=== PATIENT | male | born 1935 | race Caucasian/White ===

== ENCOUNTER → 2023-01-12 | Outpatient (REF) | payer MEDICARE, MEDICAID, SELFPAY ==
[2023-01-12 07:43] LABS: Hematocrit 43.3 % (40-54); Hemoglobin 13.6 g/dL (13.0-16.5); Mean Corp Hgb Conc 31.4 g/dL (32-36); Mean Corpuscular Hgb 31.3 pg (27.0-32.0); Mean Corpuscular Volume 99.8 fL (80-94); Mean Platelet Vol. 11.1 fl (6.2-12.0); Platelet Count 240 K/mm3 (150-450); RBC Distribution Width CV 13.2 % (11.6-14.6); Red Blood Count 4.34 M/mm3 (4.6-6.2); White Blood Count 9.1 K/mm3 (4.4-11.0)
[2023-01-12 07:56] LABS: Anion Gap 7 (5-15); BUN 27 mg/dL (7-18); BUN/Creat Ratio 14.9 RATIO (10-20); Calcium,Total 8.9 mg/dL (8.5-10.1); Chloride 110 mmol/L (98-107); Creatinine, Serum 1.81 mg/dL (0.70-1.30); EST Glomerular Filtration Rate 38 mL/min (>60); Est Glom Filt Rate - Afr Amer 46 mL/min (>60); Glucose 128 mg/dL (74-106); Potassium 4.1 mmol/L (3.5-5.1); Sodium Level 143 mmol/L (136-145)
== END ==
LOC: OLS.WCC 05:00
PROVIDERS: PCP Family Medicine; Visit Provider Family Medicine
DX: I11.0 Hypertensive heart disease with heart failure (principal); I50.9 Heart failure, unspecified; E11.9 Type 2 diabetes mellitus without complications
CPT/HCPCS: 36415; 80048; 85027

== ENCOUNTER → 2023-05-12 | Outpatient (REF) | payer MEDICARE, MEDICAID, SELFPAY ==
[2023-05-12 08:52] LABS: Hematocrit 40.4 % (40-54); Hemoglobin 12.8 g/dL (13.0-16.5); Mean Corp Hgb Conc 31.7 g/dL (32-36); Mean Corpuscular Hgb 31.2 pg (27.0-32.0); Mean Corpuscular Volume 98.5 fL (80-94); Mean Platelet Vol. 11.9 fl (6.2-12.0); Platelet Count 235 K/mm3 (150-450); RBC Distribution Width CV 13.2 % (11.6-14.6); White Blood Count 8.5 K/mm3 (4.4-11.0)
[2023-05-12 09:19] LABS: Anion Gap 4 (5-15); BUN 25 mg/dL (7-18); BUN/Creat Ratio 16.7 RATIO (10-20); Calcium,Total 9.2 mg/dL (8.5-10.1); Chloride 111 mmol/L (98-107); EST Glomerular Filtration Rate 47 mL/min (>60); Est Glom Filt Rate - Afr Amer 57 mL/min (>60); Glucose 119 mg/dL (74-106); Magnesium 2.1 mg/dL (1.6-2.6); Sodium Level 143 mmol/L (136-145)
--- OUTSIDE RECORDS SUMMARY | 2023-05-13 19:00 | XMS RPT_ITS | CCD ---
Author Name Unknown Address [address] [place] [address] Organization [facility] Care Team Providers Care Extension Work Director Name Role Phone BARB SAWYER Unavailable Unavailable PROVIDER, UNKNOWN Unavailable Unavailable PROVIDER, UNKNOWN Unavailable Unavailable PROVIDER, UNKNOWN Unavailable Unavailable PROVIDER, UNKNOWN Unavailable Unavailable PROVIDER, UNKNOWN Unavailable Unavailable PROVIDER, UNKNOWN Unavailable Unavailable Enoc Mcguire Unavailable Jean Marie Bhatia Unavailable [phone] Elias CRUZ, Yrn Wilson Primary Care Provider Enoc Mcguire Unavailable Jean Marie Bhatia Unavailable Yrn Griffin MD Primary Care Provider [phone] Enoc Mcguire Unavailable Jean Marie Bhatia Unavailable Yrn Griffin MD Primary Care Provider Enoc Mcguire Unavailable Jean Marie Bhatia Unavailable Yrn Griffin MD Primary Care Provider [phone] ERON DIAS JR Attending Unavailable YRN GRIFFIN Primary Care Unavailable Allergies Allergy Classification Reported Allergen(s) Allergy Type Date of Onset Reaction(s) Facility (11 sources) cetirizine; Translations: [CETIRIZINE HCL] Drug Allergy 1 Other: See Comments [facility] Other [place] [facility] Medications Completed/Discontinued Medications Medication Drug Class(es) Dates Sig (Normalized) Sig (Original) acetaminophen 325 mg oral tablet (9 sources) Start: 01-30-2020 take 2 tablets by mouth every six hours as needed acetaminophen (TYLENOL) 325 mg tablet Take 2 tablets by mouth every 6 hours as needed. 0 01/30/2020 Active Problems Active Problems Problem Classification Problem Date Documented Da te Episodic/Chronic Aortic; peripheral; and visceral artery aneurysms (9 sources) Aneurysm of ascending aorta; Translations: [Thoracic aortic aneurysm, without rupture] Onset: 04-01-2015 10-02-2017 Chronic Cataract (9 sources) Bilateral pseudophakia; Translations: [Presence of intraocular lens] Onset: 12-25-2015 12-25-2015 Chronic Chronic kidney disease (9 sources) Chronic kidney disease stage 3; Translations: [Stage 3 chronic kidney disease] Onset: 02-03-2020 02-03-2020 Chronic Diabetes mellitus with complications (20 sources) 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; Translations: [Type 2 diabetes mellitus with diabetic autonomic (poly)neuropathy] Onset: 08-30-2014 11-16-2019 Chronic Diabetes mellitus without complication (11 sources) Type 2 diabetes mellitus without complications; Translations: [Type 2 diabetes mellitus] Onset: 03-28-1997 05-13-2021 Chronic Disorders of lipid metabolism (11 sources) Hyperlipidemia, unspecified; Translations: [Mixed hyperlipidemia] Onset: 11-13-2010 11-16-2019 Chronic Essential hypertension (9 sources) Hypertensive disorder; Translations: [Essential (primary) hypertension] Onset: 03-30-2015 11-15-2019 Chronic Mood disorders (10 sources) Depressive disorder; Translations: [Depression] Onset: 11-13-2010 11-16-2019 Chronic Mood disorders (2 sources) Major depressive disorder, single episode, unspecified; Translations: [Major depressive disorder, single episode, unspecified] Onset: 11-25-2017 Other aftercare (2 sources) jail (current) use of antithrombotics/ant iplatelets; Translations: [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 (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) use of antithrombotics/ant iplatelets] Onset: 11-25-2017 Episodic Other circulatory disease (2 sources) Personal history of transient ischemic attack (TIA), 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 deficits; Translations: [Prsnl hx of TIA (TIA), and cereb infrc w/o resid deficits] Onset: 11-25-2017 Episodic Other connective tissue disease (2 sources) Presence of left artificial knee joint; Translations: [Presence of left artificial knee joint] Onset: 11-25-2017 Chronic Other connective tissue disease (6 sources) Other specified soft tissue disorders; Translations: [Arthrodesis status] Onset: 11-25-2017 Episodic Other connective tissue disease (1 source) Recurrent falls ; Translations: [Repeated falls] Episodic Other lower respiratory disease (1 source) Dyspnea; Translations: [Shortness of breath] Episodic Other nervous system disorders (1 source) Disorder of autonomic nervous system; Translations: [Disorder of the autonomic nervous system, unspecified] Chronic Other nutritional; endocrine; and metabolic disorders (9 sources) Obese class II; Translations: [Obesity, unspecified] Onset: 03-30-2018 03-30-2018 Chronic Other nutritional; endocrine; and metabolic disorders (9 sources) Obese class I; Translations: [Obesity, unspecified] Onset: 11-16-2019 11-16-2019 Chronic Residual codes; unclassified (9 sources) Obstructive sleep apnea syndrome; Translations: [Obstructive sleep apnea (adult) (pediatric)] Onset: 03-08-2013 11-16-2019 Chronic Residual codes; unclassified (1 source) Transient alteration of awareness; Translations: [Transient alteration of awareness] Episodic Screening or history of mental health and substance abuse (2 sources) Personal history of nicotine dependence; Translations: [Personal history of nicotine dependence] Onset: 11-25-2017 Episodic Transient cerebral ischemia (9 sources) Amaurosis fugax; Translations: [Amaurosis fugax] Onset: 08-07-2015 08-07-2015 Chronic Unclassified (2 sources) Obstructive sleep apnea (adult) (pediatric); Translations: [Dependence on other enabling machines and devices] Onset: 02-05-2017 Chronic Unclassified (2 sources) Sleep apnea, unspecified; Translations: [Sleep apnea, unspecified] Onset: 11-25-2017 Unclassified (2 sources) 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 (current) use of oral hypoglycemic drugs; Translations: [jail (current) use of oral hypoglycemic drugs] Onset: 11-25-2017 Past or Other Problems Problem Classification Problem Date Documented Date Episodic/Chronic Other circulatory disease (9 sources) Orthostatic hypotension; Translations: [Orthostatic hypotension] Onset: 03-28-2015 05-13-2021 Episodic Other circulatory disease (9 sources) History of cerebrovascular accident; Translations: [Personal history of transient ischemic attack (TIA), 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 deficits] Onset: 04-27-2017 02-03-2020 Episodic Other eye disorders (9 sources) Dry eyes; Translations: [Dry eye syndrome of bilateral lacrimal glands] Onset: 08-07-2015 08-07-2015 Episodic Other fractures (18 sources) Closed fracture of second cervical vertebra; Translations: [Unspecified nondisplaced fracture of second cervical vertebra, initial encounter for closed fracture] Onset: 02-23-2020 02-23-2020 Episodic Other skin disorders (9 sources) Finding of neck region; Translations: [Localized swelling, mass and lump, neck] Onset: 07-12-2015 07-12-2015 Episodic Spondylosis; intervertebral disc disorders; other back problems (9 sources) Chronic neck pain; Translations: [Cervicalgia] Onset: 11-13-2010 05-13-2021 Episodic Results Test Name Value Interpretation Reference Range Facil ity Vital Signs Date Time Vital Sign Value Performing Clinician Faci lity 02-24-2022 13:10-0400 Body weight 110.68 kg Eron Dias Jr., MD Work Phone: [facility] 02-24-2022 13:10-0400 Diastolic blood pressure 56 mm[Hg] Eron Dias Jr., MD Work Phone: [facility] 02-24-2022 13:10-0400 Heart rate 64 /min Eron Dias Jr., MD Work Phone: [facility] 02-24-2022 13:10-0400 Respiratory rate 20 /min Eron Dias Jr., MD Work Phone: [facility] 02-24-2022 13:10-0400 SaO2% (BldA) [Mass fraction] 94 % Eron Dias Jr., MD Work Phone: [facility] 02-24-2022 13:10-0400 Systolic blood pressure 112 mm[Hg] Eron Dias Jr., MD Work Phone: [facility] Encounters Encounter Date Encounter Type Care Provider Facility Start: 06-13-2022 Telephone encounter Eron Dias MD Work Phone: Neurology Plan of Treatment Date Care Activity Detail Author Start: 11-29-2026 Urine microalbumin profile DTA P,TDAP,TD (3 - Td or Tdap) [facility] Start: 05-18-2022 ADVANCE DIRECTIVE DISCUSSION ADVANCE DIRECTIVE DISCUSSION [facility] Start: 01-16-2022 Influenza vaccination C [facility] Start: 01-07-2022 COVID-19 VACCINE (5 - Booster for Moderna series) COVID-19 VACCINE (5 - Booster for Moderna series) [facility] Start: 05-18-2021 ADVANCE DIRECTIVE DISCUSSION ADVANCE DIRECTIVE DISCUSSION [facility] Start: 01-16-2021 Influenza vaccination INFLUENZA (#1) [facility] Start: 08-09-2020 Hepatitis B surface antibody level LDL CHOLESTEROL [facility] Start: 06-30-2020 Hepatitis C antibody , confirmatory test DILATED RETINAL EXAM [facility] Start: 02-10-2020 Hemoglobin A1c/Hemoglobin.total in Blood HBA1C [facility] Start: 01-20-2020 Hepatitis B screening URINE AL BUMIN:CREATININE RATIO [facility] Start: 11-10-2019 3 comp foot exam completed DIABETIC FOOT EXAM [facility] Start: 07-13-2009 SHINGRIX VACCINE (2 of 3) HURLEY GRIX VACCINE (2 of 3) [facility] Start: 1940 COVID-19 VACCINE (1) COVID-19 VACCIN E (1) [facility] Start: 03-30-1936 COVID-19 VACCINE (#1) COVID-19 VACCI NE (#1) [facility] Immunizations Immunization Date Immunization Notes Care Provider Fa hadley 02-24-2020 influenza, high-dose , quadrivalent vaccine (FLUZONE HIGH DOSE QUADRIVALENT) Austen Gooden MD Work Phone: [facility] Work Phone: 01-30-2020 influenza, high-dose , quadrivalent vaccine (FLUZONE HIGH DOSE QUADRIVALENT) Austen Gooden MD Work Phone: [facility] 02-09-2019 influenza, high dose seasonal, preservative-free Austen Gooden MD Work Phone: [facility] 05-18-2018 influenza, seasonal, injectable, preservative free Austen Gooden MD Work Phone: [facility] 02-23-2018 influenza, high dose seasonal, preservative-free Austen Gooden MD Work Phone: [facility] 01-26-2017 influenza, high dose seasonal, preservative-free Austen Gooden MD Work Phone: [facility] 11-29-2016 tetanus toxoid, redu chong diphtheria toxoid, and acellular pertussis vaccine, adsorbed Austen Gooden MD Work Phone: [facility] 09-24-2016 pneumococcal conjuga te vaccine, 13 valent Austen Gooden MD Work Phone: [facility] 04-21-2016 influenza, seasonal, injectable, preservative free Austen Gooden MD Work Phone: [facility] 03-25-2016 influenza, high dose seasonal, preservative-free Austen Gooden MD Work Phone: [facility] 10-16-2015 pneumococcal polysaccharide vaccine, 23 valent Austen Gooden MD Work Phone: [facility] 03-07-2015 influenza, high dose seasonal, preservative-free Austen Gooden MD Work Phone: [facility] 03-07-2015 pneumococcal polysaccharide vaccine, 23 valraimundo Gooden MD Work Phone: [facility] 03-01-2014 influenza, high dose seasonal, preservative-free Austen Gooden MD Work Phone: [facility] 03-08-2013 influenza virus vacc ine, unspecified formulation Austen Gooden MD Work Phone: [facility] 02-23-2012 influenza virus vacc ine, unspecified formulation Austen Gooden MD Work Phone: [facility] 02-27-2011 influenza virus vacc ine, unspecified formulation Austen Gooden MD Work Phone: [facility] Work Phone: 05-18-2009 pneumococcal polysaccharide vaccine, 23 valraimundo Gooden MD Work Phone: [facility] 05-18-2009 tetanus toxoid, redu chong diphtheria toxoid, and acellular pertussis vaccine, adsorbed Austen Gooden MD Work Phone: [facility] 05-18-2009 zoster vaccine, live Austen conner MD Work Phone: [facility] Payers Date Payer Category Payer Medicare UHC AARP MEDICAR E [facility] AAR MEDICARE O [id number] 2020-Present [phone] [address] [address] [place] [address] [facility] [id number] 2020 Medicare UHC AARP MEDICAR E UHC AARP MEDICARE HMO [id number] 2020-Present [phone] [address] [address] [place] [address] [facility] [place] [id number] 2020 Medicare [id number] Private Health Insurance Social History Date Type Detail Facility Start: 12-04-2011 End: 01-09-2015 Tobacco smoking status NHIS Ex-smoker [facility] End: 05-17-1985 History of tobacco use Current smoker [facility] Start: 12-04-2011 End: 01-09-2015 Cigarettes smoked current (pack per day) - Reported 0.25 [facility] Start: 12-04-2011 End: 01-09-2015 Tobacco use and exposure Smokeless tobacco non-user [facility] Start: 08-19-2020 End: 02-24-2022 Alcohol intake Current non-drinker of alcohol (finding) [facility] Start: 01-13-2017 History SDOH Alcohol Comment rare [facility] Start: 01-27-2020 History SDOH Financial 4 [facility] Start: 01-27-2020 History SDOH Food Worry 1 [facility] Start: 01-27-2020 History SDOH Transpo rt Med 2 [facility] Start: 1935 Sex Assigned At Not on file C [facility] End: 05-17-1985 History of tobacco use Cigarette Smoker [facility] Work Phone: Medical Equipment Procedure Code Equipment Code Equipment Origin al Text Equipment Identifier Dates Start: 01-11-2020 End: 12-24-2021 Clinical Notes 11-15-2019 to 06-13-2022 Telephone Encounter - Narcisa Franco LPN - 06/13/2022 1:39 PM Ruy Dias Jr., MD - 02/24/2022 1:00 PM EDTTelephone Encounter - Yojana LAINEY Hewitt - 12/23/2021 1:29 PM EDT Note Date & Type Note Facility 06-13-2022 Miscellaneous Notes Marc from [facility] calling wanting to cancel appt with Dr Dias scheduled for 06/27/2022. He said Ambulance Officer there said could go ahead and cancel appt, patient is of sound mind. Family member is son Micky phone number is [phone]. I did not cancel appt in computer. Nurse said can fax them at [phone] if any problem. They have removed appt from patient calendar. Please advise documented in this encounter [facility] 02-24-2022 Note HNO ID: [id number] Author: Eron Dias Jr., MD Service: ? Author Type: Physician Type: Progress Notes Filed: 02/24/2022 2:07 PM Note Text: NEW PATIENT (CONSULT) HISTORY AND PHYSICAL EXAM PRIMARY CARE PHYSICIAN: Yrn Griffin MD, MD REASON FOR CONSULT: Weakness, falls REFERRING PHYSICIAN: Self CHIEF COMPLAINT: He's weak Consultation requested by Self for an opinion regarding chief complaint of Patient presents with: Hospital F/U: [facility] for confusion Established Patient and my final recommendations will be communicated back to the requesting physician by way of shared medical record or letter via [place] mail. HISTORY OF PRESENT ILLNESS: Watson Bullard is a 86 year old male, with med hx as below. Here for follow up s/p hospitalization on 02/15/22 for loc with fall. Per available records, CT brain did not show an acute process. ECG showed NSR while in ER. Workup unremarkable. Per notes, was in kitchen to get something to eat and thinks he passed out finding himself on the floor. However upon arrival family states he is here as recommended by rehab after couple stints in the past year. Last saw Dr. Carpenter in 2019. Per note: Watson Bullard is a pleasant 84 year old male with a PMHx as noted above [facility] further evaluation of recurrent syncope. Orthostatic vitals obtained this clinic visit notable for a significant drop from 125/60 to 87/42 with transition from the supine to standing positions respectively. Patient immediately also became symptomatic with the change in position with lightheadedness/ pre-syncopal feeling. Neurologic examination today demonstrates features consistent with a length dependent, large fiber, sensory polyneuropathy but otherwise is essentially unremarkable with no definite focal findings. Patient's exam, history and orthostatic vitals are most consistent with a diabetic autonomic neuropathy. Review of prior work-up for alternative causes of an autonomic neuropathy are unrevealing (including Vitamin B12, screening for a paraproteinemia, adrenal insufficiency). There are also no clear signs on exam today to suggest a neurodegenerative process (such as Parkinson's disease or MSA) as a reason for autonomic dysfunction. No indications to pursue additional work-up at this time. Discussed impression at length with patient and family. Reviewed diagnosis and management of a diabetic autonomic neuropathy with patient and family in detail. Provided guidelines for measures to cope and manage orthostatic symptoms. A prescription for compression stockings was provided this visit as well. Encouraged continued use of midodrine as previously ordered. PLAN/RECOMMENDATIONS: - The impression above as well as the plan as outlined below were extensively discussed with the patient (in the company of his son and daughter in law) who voiced understanding. All questions were answered to their stated satisfaction. Provided the following information this clinic visit: Guidelines for the Treatment of Orthostatic Intolerance (OI) 1. Make all postural changes from lying to sitting or sitting to standing, slowly. 2. Drink to 2.0 -2.5 L of fluids per day 3. Increase sodium in the diet to 3 - 5 g per day. If not helpful and BP is stable, may try 5-7 g per day. 4. Avoid large meals which can cause low blood pressure during digestion. It is better to eat smaller meals more often than three large meals. 5. Avoid alcohol. Alcohol and cause blood to pool in the legs which may worsen low blood pressure reactions when standing. This can aggravate OI. 6. Perform lower extremity exercises to improve strength of the leg muscles. This will help prevent blood from a pooling in the legs when standing and walking. 7. Raise the head of the bed by 6 to 10 inches. The entire bed must be at an angle. Raising only the head portion of the bed at waist level or using pillows will not be effective. Raising the head of the bed will reduce urine formation overnight and there will be more volume in the circulation in the morning. 8. During bad days, drink 500 cc of water quickly. This will result in an increased blood pressure within 5 minutes of drinking the water. The effect will last up to one hour and may improve orthostatic intolerance. 9. Use custom fitted elastic support stockings. These will reduce a tendency for blood to pool in the legs when standing and may improve orthostatic intolerance. 10. Use physical counter maneuvers such as leg crossing, squatting, or raising and resting the leg on a chair. These maneuvers increase blood pressure and can improve orthostatic intolerance. Patient reportedly is having recurrent episodes of passing out. Multiple hospital stays for being confused. Reportedly gets up in the AM, tries to sit up on edge of bed and if does not gets thrown to the left, but states this has been only happening in the last coupl (more content not included)... [facility] 02-24-2022 History of Presen t illness Narrative NEW PATIENT (CONSULT) HISTORY AND PHYSICAL EXAM PRIMARY CARE PHYSICIAN: Yrn Griffin MD, MD REASON FOR CONSULT: Weakness, falls REFERRING PHYSICIAN: Self CHIEF COMPLAINT: He's weak Consultation requested by Self for an opinion regarding chief complaint of Patient presents with: Hospital F/U: [facility] for confusion Established Patient and my final recommendations will be communicated back to the requesting physician by way of shared medical record or letter via [place] mail. HISTORY OF PRESENT ILLNESS: Watson Bullard is a 86 year old male, with med hx as below. Here for follow up s/p hospitalization on 02/15/22 for loc with fall. Per available records, CT brain did not show an acute process. ECG showed NSR while in ER. Workup unremarkable. Per notes, was in kitchen to get something to eat and thinks he passed out finding himself on the floor. However upon arrival family states he is here as recommended by rehab after couple stints in the past year. Last saw Dr. Carpenter in 2019. Per note: Watson Bullard is a pleasant 84 year old male with a PMHx as noted above [facility] for further evaluation of recurrent syncope. Orthostatic vitals obtained this clinic visit notable for a significant drop from 125/60 to 87/42 with transition from the supine to standing positions respectively. Patient immediately also became symptomatic with the change in position with lightheadedness/ pre-syncopal feeling. Neurologic examination today demonstrates features consistent with a length dependent, large fiber, sensory polyneuropathy but otherwise is essentially unremarkable with no definite focal findings. Patient's exam, history and orthostatic vitals are most consistent with a diabetic autonomic neuropathy. Review of prior work-up for alternative causes of an autonomic neuropathy are unrevealing (including Vitamin B12, screening for a paraproteinemia, adrenal insufficiency). There are also no clear signs on exam today to suggest a neurodegenerative process (such as Parkinson's disease or MSA) as a reason for autonomic dysfunction. No indications to pursue additional work-up at this time. Discussed impression at length with patient and family. Reviewed diagnosis and management of a diabetic autonomic neuropathy with patient and family in detail. Provided guidelines for measures to cope and manage orthostatic symptoms. A prescription for compression stockings was provided this visit as well. Encouraged continued use of midodrine as previously ordered. PLAN/RECOMMENDATIONS: - The impression above as well as the plan as outlined below were extensively discussed with the patient (in the company of his son and daughter in law) who voiced understanding. All questions were answered to their stated satisfaction. Provided the following information this clinic visit: Guidelines for the Treatment of Orthostatic Intolerance (OI) 1. Make all postural changes from lying to sitting or sitting to standing, slowly. 2. Drink to 2.0 -2.5 L of fluids per day 3. Increase sodium in the diet to 3 - 5 g per day. If not helpful and BP is stable, may try 5-7 g per day. 4. Avoid large meals which can cause low blood pressure during digestion. It is better to eat smaller meals more often than three large meals. 5. Avoid alcohol. Alcohol and cause blood to pool in the legs which may worsen low blood pressure reactions when standing. This can aggravate OI. 6. Perform lower extremity exercises to improve strength of the leg muscles. This will help prevent blood from a pooling in the legs when standing and walking. 7. Raise the head of the bed by 6 to 10 inches. The entire bed must be at an angle. Raising only the head portion of the bed at waist level or using pillows will not be effective. Raising the head of the bed will reduce urine formation overnight and there will be more volume in the circulation in the morning. 8. During bad days, drink 500 cc of water quickly. This will result in an increased blood pressure within 5 minutes of drinking the water. The effect will last up to one hour and may improve orthostatic intolerance. 9. Use custom fitted elastic support stockings. These will reduce a tendency for blood to pool in the legs when standing and may improve orthostatic intolerance. 10. Use physical counter maneuvers such as leg crossing, squatting, or raising and resting the leg on a chair. These maneuvers increase blood pressure and can improve orthostatic intolerance. Patient reportedly is having recurrent episodes of passing out. Multiple hospital stays for being confused. Reportedly gets up in the AM, tries to sit up on edge of bed and if does not gets thrown to the left, but states this has been only happening in the last couple weeks. However twice in hospital has been admitted for having no knowledge of anybody. Family started taking over meds in November. Was in [facility] in 10/2019 with unremarkable EEG workup. Reported that confusional states can last as long as 3 days. Imaging studies have not shown acute processes. They report he has not done that since November. Just falling more now. Then state that in December he had episode where he sits and stares into space. Lasted couple minutes. Family states if get in his face, it will last longer. If lot of people around it bothers him . When asked if blood sugars are normal during episodes they state not always . Blood sugar is low per family. State sugars run in the 120s and during events both AMS and falls is in the 60-70s. Pt is short of breath during spells. Follows with Dr. Traylor from pulmonary. Additional review of records indicate that Midodrine and Florinef held due to side effects in the past. I did see pt as a consult in hospital on 01/28/2020 and per my note: Patient with recurrent syncope that appears to be of positional nature, with orthostatic hypotension noted on exam this admit and during recent EMU admit. Extensive neuro workup including now MRI brain, MRA head and neck, as well as EMU stay, with findings thus far not suggesting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 chest today does not show significant pathology to explain the dyspnea. Recent echo (12/22/14) showed Normal LV SF, EF 60%, stage 1 diastolic dysfunction, normal RV function, RVSP 29, so pulmonary HTN seems less likely though possible, may need right heart cath to confirm Echo estimation of RVSP, and to exclude pulm HTN. Plan: - consider pulmonary consult - continue mometasone, prn albuterol [place] (hard of hearing) 08/08/2014 11/15/2019 Family history of malignant neoplasm of gastrointestinal tract 06/29/2014 06/29/2014 documented as of this encounter (statuses as of 03/04/2022) [facility] History of Past illness Narrative* Problem Noted Date Resolved Date Recurrent seizures 11/15/2019 11/15/2019 Syncope 11/14/2019 01/30/2020 Last Assessment & Plan: Assessment: Patient is an emergent transfer from [facility] for diagnostic evaluation to determine the best treatment plan, one typical event captured overnight. PLAN: - Continuous video-EEG monitoring for diagnosis - Seizure Precautions, up with assistance - F/U on admission labs - Pt not on any home medications for seizures, continue GBP 300 mg BID for neuropathy - Rescue Medication: Ativan For seizure duration greater than or equal to 3 minutes or seizure frequency of 3 or more seizures per 8 hours SOB (shortness of breath) on exertion 03/28/2015 04/23/2015 Overview: Etiology unclear, possibly secondary to airway collapse seen on recent bronchoscopy (03/21/15), showing excessive dynamic airway collapse from mid trachea throughout main, lobar, segmental and subsegmental airways bilaterally . CT chest today does not show significant pathology to explain the dyspnea. Recent echo (12/22/14) showed Normal LV SF, EF 60%, stage 1 diastolic dysfunction, normal RV function, RVSP 29, so pulmonary HTN seems less likely though possible, may need right heart cath to confirm Echo estimation of RVSP, and to exclude pulm HTN. Plan: - consider pulmonary consult - continue mometasone, prn albuterol [place] (hard of hearing) 08/08/2014 11/15/2019 Family history of malignant neoplasm of gastrointestinal tract 06/29/2014 06/29/2014 documented as of this encounter (statuses as of 03/05/2022) [facility] History of Past illness Narrative* Problem Noted Date Resolved Date Recurrent seizures 11/15/2019 11/15/2019 Syncope 11/14/2019 01/30/2020 Last Assessment & Plan: Assessment: Patient is an emergent transfer from [facility] for diagnostic evaluation to determine the best treatment plan, one typical event captured overnight. PLAN: - Continuous video-EEG monitoring for diagnosis - Seizure Precautions, up with assistance - F/U on admission labs - Pt not on any home medications for seizures, continue GBP 300 mg BID for neuropathy - Rescue Medication: Ativan For seizure duration greater than or equal to 3 minutes or seizure frequency of 3 or more seizures per 8 hours SOB (shortness of breath) on exertion 03/28/2015 04/23/2015 Overview: Etiology unclear, possibly secondary to airway collapse seen on recent bronchoscopy (03/21/15), showing excessive dynamic airway collapse from mid trachea throughout main, lobar, segmental and subsegmental airways bilaterally . CT chest today does not show significant pathology to explain the dyspnea. Recent echo (12/22/14) showed Normal LV SF, EF 60%, stage 1 diastolic dysfunction, normal RV function, RVSP 29, so pulmonary HTN seems less likely though possible, may need right heart cath to confirm Echo estimation of RVSP, and to exclude pulm HTN. Plan: - consider pulmonary consult - continue mometasone, prn albuterol [place] (hard of hearing) 08/08/2014 11/15/2019 Family history of malignant neoplasm of gastrointestinal tract 06/29/2014 06/29/2014 documented as of this encounter (statuses as of 07/17/2022) [facility] note* Diagnosis Type 2 diabetes mellitus with stage 3b chronic kidney disease, without long-term current use of insulin (HCC) documented in this encounter [facility] note* Diagnosis Recurrent falls- Primary Personal history of fall Autonomic dysfunction Unspecified disorder of autonomic nervous system Shortness of breath Transient alteration of awareness documented in this encounter [facility] note* Diagnosis Depression, unspecified depression type documented in this encounter [facility] Summary Purpose Family History No Family History Records FoundNo Family History Records FoundNo Family History Records FoundNo Family History Records FoundNo Family History Records FoundNo Family History Records Found Advance Directives No Advanced Directives Records FoundDocuments on File Type Date 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 Advance Directive(s) 01/25/2020 4:14 PM Advance Directive(s) 11/15/2019 1:09 PM Latest Code Status on File Code Status Date Activated Date Inactivated Comments Full Code 01/25/2020 8:52 PM 01/30/2020 6:49 PM Full Code Order Discussed With: Patient DNR Comfort/Arrest 03/28/2015 4:51 PM 04/01/2015 3:21 PM DNR Order Discussed With: Patient Additional Source Comments (unrecognized sect ion and content) No Status Records FoundNo Status Records FoundNo Status Records FoundNo Status Records FoundNo Status Records FoundNo Status Records Found INFORMATION SOURCE (unrecogn ized section and content) DATE CREATED AUTHOR AUTHOR'S ORGANIZ ATION 12/01/2017 [facility] DATE CREATED AUTHOR AUTHOR'S ORGANIZ ATION 03/16/2020 [facility] DATE CREATED AUTHOR AUTHOR'S ORGANIZ ATION 05/10/2020 [facility] [place] DATE CREATED AUTHOR AUTHOR'S ORGANIZ ATION 08/12/2021 [facility] DATE CREATED AUTHOR AUTHOR'S ORGANIZ ATION 07/18/2022 [facility] Source Comments (unrecognize d section and content) In the event this informatio n is protected by the Federal Confidentiality of Alcohol and Drug Abuse Patient Records regulations: The Federal rules restrict any use of the information to criminally investigate or prosecute any alcohol or drug abuse patient.[facility] the event this information is protected by the Federal Confidentiality of Alcohol and Drug Abuse Patient Records regulations: The Federal rules restrict any use of the information to criminally investigate or prosecute any alcohol or drug abuse patient.[facility] the event this information is protected by the Federal Confidentiality of Alcohol and Drug Abuse Patient Records regulations: The Federal rules restrict any use of the information to criminally investigate or prosecute any alcohol or drug abuse patient.[facility] the event this information is protected by the Federal Confidentiality of Alcohol and Drug Abuse Patient Records regulations: The Federal rules restrict any use of the information to criminally investigate or prosecute any alcohol or drug abuse patient.[facility] the event this information is protected by the Federal Confidentiality of Alcohol and Drug Abuse Patient Records regulations: The Federal rules restrict any use of the information to criminally investigate or prosecute any alcohol or drug abuse patient.[facility] the event this information is protected by the Federal Confidentiality of Alcohol and Drug Abuse Patient Records regulations: The Federal rules restrict any use of the information to criminally investigate or prosecute any alcohol or drug abuse patient.[facility] Hospital[facility] the event this information is protected by the Federal Confidentiality of Alcohol and Drug Abuse Patient Records regulations: The Federal rules restrict any use of the information to criminally investigate or prosecute any alcohol or drug abuse patient.[facility] the event this information is protected by the Federal Confidentiality of Alcohol and Drug Abuse Patient Records regulations: The Federal rules restrict any use of the information to criminally investigate or prosecute any alcohol or drug abuse patient.[facility] the event this information is protected by the Federal Confidentiality of Alcohol and Drug Abuse Patient Records regulations: The Federal rules restrict any use of the information to criminally investigate or prosecute any alcohol or drug abuse patient.[facility] Reason for Visit (unrecogniz ed section and content) Reason Comments Refill Request Reason Comments Clinical Update At [facility] Reason Comments Appointment Reason Comments Hospital F/U [facility] for confusion Established Patient Care Teams (unrecognized sec tion and content) Extension Work Director Relationship Specialty Start Date End Date Yrn Griffin MD [address] [place] [address] PCP - General Family Practice 02/17/20 [facility] [facility] Pain Management 03/08/13 Jean Marie Bhatia Physician Orthopedics 09/27/15 [facility] Physician Cardiology 09/27/15 Extension Work Director Relationship Specialty Start Date End Date Yrn Griffin MD [address] [place] [id number] PCP - General Family Practice 02/17/20 [employer]oc Mc[employer] Pain Management 03/08/13 Jean Marie Bhatia Physician Orthopedics 09/27/15 [facility] Physicians Physician Cardiology 09/27/15 Extension Work Director Relationship Specialty Start Date End Date Yrn Griffin MD [address] [place] [address] [id number] PCP - General Family Medicine 02/17/20 [employer]oc Mc[employer] Pain Management 03/08/13 Jean Marie Bhatia Physician Orthopedics 09/27/15 [facility] Physicians Physician Cardiology 09/27/15 Extension Work Director Relationship Specialty Start Date End Date Yrn Griffin MD [address] [place] [address] [id number] PCP - General Family Medicine 02/17/20 Enoc Mcgu[employer] Pain Management 03/08/13 Jean Marie Bhatia Physician Orthopedics 09/27/15 [facility] Phys[facility] Physician Cardiology 09/27/15 Extension Work Director Relationship Specialty Start Date End Date Yrn Griffin MD [address] [place] [address] [id number] PCP - General Family Medicine 02/17/20 [employer]oc Mc[employer] Pain Management 03/08/13 Jean Marie Bhatia Physician Orthopedics 09/27/15 [facility] V[facility] Physicians Physician Cardiology 09/27/15 FOR RECORDS PERTAINING TO PATIENTS WHO ARE OR HAVE BEEN ENROLLED IN A CHEMICAL DEPENDENCY/SUBSTANCEABUSE PROGRAM, SOME INFORMATION MAY BE OMITTED. This clinical summary was aggregated from multiple sources. Caution should be exercised in using it in the provision of clinical care. This summary normalizes information from multiple sources, and as a consequence, information in this document may materially change the coding, format and clinical context of patient data. In addition, data may be omitted in some cases. CLINICAL DECISIONS SHOULD BE BASED ON THE PRIMARY CLINICAL RECORDS. [facility]. provides no warranty or guarantee of the accuracy or completeness of information in this document.
== END ==
LOC: OLS.WCC 04:00
PROVIDERS: PCP Family Medicine; Visit Provider Family Medicine
DX: I11.0 Hypertensive heart disease with heart failure (principal); I50.9 Heart failure, unspecified; E11.9 Type 2 diabetes mellitus without complications
CPT/HCPCS: 36415; 80048; 83735; 85027

== ENCOUNTER → 2023-06-08 | Outpatient (REF) | payer MEDICARE, MEDICAID, SELFPAY ==
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
[2023-06-08 08:56] LABS: Cholesterol 140 mg/dL (200); High Density Lipoprotein 54 mg/dL; Triglycerides 98 mg/dL; Very Low Density Lipoprotein 20 mg/dL (5-40)
[2023-06-08 10:36] LABS: Hemoglobin A1c 7.2 % (3.8-5.6)
== END ==
LOC: OLS.WCC 05:00
PROVIDERS: PCP Family Medicine; Visit Provider Family Medicine
DX: E11.9 Type 2 diabetes mellitus without complications (principal); E78.5 Hyperlipidemia, unspecified
CPT/HCPCS: 36415; 80061; 83036

== ENCOUNTER → 2023-06-12 | Outpatient (REF) | payer MEDICARE, MEDICAID, SELFPAY ==
[2023-06-12 09:38] LABS: Hematocrit 42.3 % (40-54); Hemoglobin 13.2 g/dL (13.0-16.5); Mean Corp Hgb Conc 31.2 g/dL (32-36); Mean Corpuscular Hgb 30.3 pg (27.0-32.0); Mean Platelet Vol. 11.5 fl (6.2-12.0); Platelet Count 200 K/mm3 (150-450); RBC Distribution Width CV 12.7 % (11.6-14.6); RBC Distribution Width SD 45.3 fl (35.1-43.9); Red Blood Count 4.36 M/mm3 (4.6-6.2); White Blood Count 9.9 K/mm3 (4.4-11.0)
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
[2023-06-12 09:51] LABS: Anion Gap 3 (5-15); BUN 24 mg/dL (7-18); Chloride 111 mmol/L (98-107); Creatinine, Serum 1.33 mg/dL (0.70-1.30); EST Glomerular Filtration Rate 54 mL/min (>60); Est Glom Filt Rate - Afr Amer 65 mL/min (>60); Glucose 118 mg/dL (74-106); Potassium 3.5 mmol/L (3.5-5.1); Sodium Level 142 mmol/L (136-145)
== END ==
LOC: OLS.WCC 07:05
PROVIDERS: PCP Family Medicine; Visit Provider Family Medicine
DX: E11.9 Type 2 diabetes mellitus without complications (principal); I11.0 Hypertensive heart disease with heart failure; I50.9 Heart failure, unspecified
CPT/HCPCS: 36415; 80048; 85027

== ENCOUNTER → 2023-07-08 | Outpatient (REF) | payer MEDICARE, MEDICAID, SELFPAY ==
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
== END ==
LOC: OLS.WCC 23:03
PROVIDERS: PCP Family Medicine; Visit Provider Family Medicine
DX: R05.9 Cough, unspecified (principal); R06.2 Wheezing
CPT/HCPCS: 87633

== ENCOUNTER → 2023-07-13 | Outpatient (REF) | payer MEDICARE, MEDICAID, SELFPAY ==
[2023-07-13 09:14] LABS: Hematocrit 46.4 % (40-54); Hemoglobin 14.6 g/dL (13.0-16.5); Mean Corp Hgb Conc 31.5 g/dL (32-36); Mean Corpuscular Hgb 30.4 pg (27.0-32.0); Mean Corpuscular Volume 96.7 fL (80-94); Mean Platelet Vol. 11.4 fl (6.2-12.0); Platelet Count 234 K/mm3 (150-450); RBC Distribution Width CV 12.2 % (11.6-14.6); RBC Distribution Width SD 43.9 fl (35.1-43.9); White Blood Count 14.4 K/mm3 (4.4-11.0)
[2023-07-13 09:54] LABS: Anion Gap 9 (5-15); BUN 19 mg/dL (7-18); BUN/Creat Ratio 12.5 RATIO (10-20); Calcium,Total 9.4 mg/dL (8.5-10.1); Chloride 110 mmol/L (98-107); Creatinine, Serum 1.52 mg/dL (0.70-1.30); EST Glomerular Filtration Rate 46 mL/min (>60); Est Glom Filt Rate - Afr Amer 56 mL/min (>60); Glucose 156 mg/dL (74-106); Potassium 3.5 mmol/L (3.5-5.1); Sodium Level 143 mmol/L (136-145)
== END ==
LOC: OLS.WCC 05:00
PROVIDERS: PCP Family Medicine; Visit Provider Family Medicine
DX: I11.0 Hypertensive heart disease with heart failure (principal); I50.9 Heart failure, unspecified; E11.9 Type 2 diabetes mellitus without complications
CPT/HCPCS: 36415; 80048; 85027

== ENCOUNTER → 2023-08-11 | Outpatient (REF) | payer MEDICARE, MEDICAID, SELFPAY ==
[2023-08-11 09:01] LABS: Hematocrit 41.9 % (40-54); Hemoglobin 13.5 g/dL (13.0-16.5); Mean Corp Hgb Conc 32.2 g/dL (32-36); Mean Corpuscular Hgb 30.7 pg (27.0-32.0); Mean Corpuscular Volume 95.2 fL (80-94); Mean Platelet Vol. 11.5 fl (6.2-12.0); Platelet Count 220 K/mm3 (150-450); RBC Distribution Width CV 12.6 % (11.6-14.6); RBC Distribution Width SD 44.3 fl (35.1-43.9); White Blood Count 8.8 K/mm3 (4.4-11.0)
[2023-08-11 09:10] LABS: Anion Gap 9 (5-15); BUN 21 mg/dL (7-18); Chloride 107 mmol/L (98-107); Creatinine, Serum 1.31 mg/dL (0.70-1.30); EST Glomerular Filtration Rate 55 mL/min (>60); Est Glom Filt Rate - Afr Amer 66 mL/min (>60); Glucose 110 mg/dL (74-106); Magnesium 2.1 mg/dL (1.6-2.6); Potassium 3.5 mmol/L (3.5-5.1); Sodium Level 143 mmol/L (136-145)
== END ==
LOC: OLS.WCC 05:00
PROVIDERS: PCP Family Medicine; Visit Provider Family Medicine
DX: I50.9 Heart failure, unspecified (principal); E11.9 Type 2 diabetes mellitus without complications
CPT/HCPCS: 36415; 80048; 83735; 85027

== ENCOUNTER → 2023-08-31 | Outpatient (REF) | payer MEDICARE, MEDICAID, SELFPAY ==
[2023-08-31 11:18] LABS: Anion Gap 6 (5-15); BUN 15 mg/dL (7-18); BUN/Creat Ratio 13.5 RATIO (10-20); Chloride 110 mmol/L (98-107); Creatinine, Serum 1.11 mg/dL (0.70-1.30); EST Glomerular Filtration Rate 66 mL/min (>60); Est Glom Filt Rate - Afr Amer 80 mL/min (>60); Glucose 161 mg/dL (74-106); Potassium 3.5 mmol/L (3.5-5.1); Sodium Level 143 mmol/L (136-145)
[2023-08-31 11:20] LABS: Vancomycin, Trough Level 16.4 ug/mL (5.0-15.0)
== END ==
LOC: OLS.WCC 09:50
PROVIDERS: PCP Family Medicine; Visit Provider Family Medicine
DX: N40.0 Benign prostatic hyperplasia without lower urinary tract symptoms (principal); I50.9 Heart failure, unspecified; E78.5 Hyperlipidemia, unspecified; E11.9 Type 2 diabetes mellitus without complications; L02.91 Cutaneous abscess, unspecified
CPT/HCPCS: 80048; 80202